=== PATIENT | female | born 1985 | race African-American/Black ===

== ENCOUNTER → 2017-02-10 | Outpatient (REF) | payer OTHER ==
[~2017-02-10] MED LIST: ACET25TA PO; AMIT50TA PO; AMIT75TA PO; DEPA250T2 PO; DIAM500C PO; DIVA250T PO; HYDR1CAP25 PO; HYDR50CA2 PO; METO-207 PO; NEXI20GR PO; OMEP20CA3 PO; PANT20TA PO; PROP10TA56 PO; TYLE325T5 PO
== END ==
LOC: M SFHCLERA 10:29
PROVIDERS: ATTEND Nurse Practitioner Family
DX: R30.0 Dysuria (principal)

== ENCOUNTER 2017-02-17 09:39 | Emergency (ER) | payer OTHER ==
[~2017-02-17] VITALS: Ht 162.6 cm; Wt 76.7 kg
[2017-02-17] MEDS ORDERED: diphenhydrAMINE INJ 50MG/ML VIAL (J1200) IV STA (11:04)
[2017-02-17] MEDS ORDERED: NS 1,000 ML IV ONE (11:15)
[2017-02-17] MEDS ORDERED: methylPREDNISolone INJ 125 MG/2 ML VIAL (J2930) IV ONE (11:15)
[2017-02-17] MEDS ORDERED: METOCLOPRAMIDE INJ 10MG/2ML VIAL (J2765) IV ONE (11:15)
[2017-02-17 13:25] LABS: ERYTHROCYTE SEDIMENTATION RATE 16 mm/hr (0-20)
[2017-02-17 13:28] LABS: BASO % 0.2 % (0.0-1.0); EOS # 0.1 K/mm3 (0.0-0.50); EOS % 3.1 % (0.0-3.0); LARGE UNSTAINED CELL # 0.1 K/mm3 (0.0-0.4); LARGE UNSTAINED CELL % 2.5 % (0.0-4.0); LYMPH # 0.8 K/mm3 (1.5-4.5); LYMPH % 31.3 % (24.0-44.0); MEAN CORPUSCULAR HEMOGLOBIN 28.2 pg (27.0-33.0); MEAN CORPUSCULAR HGB CONC 33.5 g/dl (32.0-36.5); MEAN CORPUSCULAR VOLUME 84.3 fl (80.0-96.0); MONO # 0.1 K/mm3 (0.0-0.8); MONO % 4.7 % (0.0-5.0); NEUTROPHILS # 1.5 K/mm3 (1.8-7.7); NEUTROPHILS % 58.3 % (36.0-66.0); PLATELET COUNT, AUTOMATED 264 k/mm3 (150-450); RED CELL DISTRIBUTION WIDTH 13.1 % (11.5-14.5); WHITE BLOOD COUNT 2.6 K/mm3 (4.0-10.0)
[2017-02-17] MEDS ORDERED: KETOROLAC 30 MG/ML VIAL (J1885) IV ONE (13:45)
[2017-02-17 14:46] VITALS: BP 128/84
== END 2017-02-17 15:18 | disposition home or self-care (01) ==
LOC: M ED 10:36
DX: G43.909 Migraine, unspecified, not intractable, without status migrainosus (principal); K21.9 Gastro-esophageal reflux disease without esophagitis; F17.200 Nicotine dependence, unspecified, uncomplicated; Z91.013 Allergy to seafood; Z88.6 Allergy status to analgesic agent; Z79.899 Other long term (current) drug therapy
CPT/HCPCS: 36415; 81025; 85025; 85652; 96374; 96375; 99283; J1200; J1885; J2765; J2930

== ENCOUNTER 2017-02-23 12:00 | Emergency (ER) | payer OTHER ==
[~2017-02-23] VITALS: Ht 162.6 cm; Wt 76.7 kg
[2017-02-23] MEDS ORDERED: BACL-67 PO (12:08)
[2017-02-23] MEDS ORDERED: diphenhydrAMINE INJ 50MG/ML VIAL (J1200) IV STA (12:56)
[2017-02-23] MEDS ORDERED: NS 1,000 ML IV ONE (13:00)
[2017-02-23] MEDS ORDERED: METOCLOPRAMIDE INJ 10MG/2ML VIAL (J2765) IV ONE (13:00)
[2017-02-23] MEDS ORDERED: MORPHINE 2 MG/ML 1ML SYRINGE IV ONE (13:00)
[2017-02-23] MEDS ORDERED: MORPHINE 4 MG/ML 1ML SYRINGE IV ONE (14:45)
[2017-02-23 15:31] VITALS: BP 112/67
== END 2017-02-23 15:44 | disposition home or self-care (01) ==
LOC: M ED 12:59
DX: R51 Headache (principal); Z88.6 Allergy status to analgesic agent; Z91.013 Allergy to seafood; Z79.899 Other long term (current) drug therapy
CPT/HCPCS: 96361; 96374; 96375; 96376; 99282; J1200; J2765

== ENCOUNTER 2017-03-05 13:36 | Emergency (ER) | payer OTHER ==
[~2017-03-05] VITALS: Ht 162.6 cm; Wt 78.5 kg
[~2017-03-05 13:36] MED LIST changes: +BACL-67 PO
[2017-03-05] MEDS ORDERED: ONDANSETRON 4 MG ORAL DISINTEGRATING TAB (S0181) PO ONE (15:15)
[2017-03-05] MEDS ORDERED: ACETAMINOPHEN 325 MG TAB PO ONE (15:15)
[2017-03-05] MEDS ORDERED: TESS100C PO (16:42)
[2017-03-05] MEDS ORDERED: ZOFR4TAB3 PO (16:42)
[2017-03-05] MEDS ORDERED: FLON1SPR (16:42)
[2017-03-05 16:55] VITALS: BP 115/71
== END 2017-03-05 16:57 | disposition home or self-care (01) ==
LOC: M ED 16:03
DX: J06.9 Acute upper respiratory infection, unspecified (principal); Z79.899 Other long term (current) drug therapy; Z88.8 Allergy status to other drugs, medicaments and biological substances; Z91.013 Allergy to seafood

== ENCOUNTER 2017-03-14 09:33 | Emergency (ER) | payer OTHER ==
[~2017-03-14] VITALS: Ht 162.6 cm; Wt 78.0 kg
[~2017-03-14 09:33] MED LIST changes: +FLON1SPR; +TESS100C PO; +ZOFR4TAB3 PO
[2017-03-14] MEDS ORDERED: NEXI40CA PO (09:47)
[2017-03-14] MEDS ORDERED: NS 1,000 ML IV ONE (10:15)
[2017-03-14] MEDS ORDERED: KETOROLAC 30 MG/ML VIAL (J1885) IV ONE (10:15)
[2017-03-14] MEDS ORDERED: METOCLOPRAMIDE INJ 10MG/2ML VIAL (J2765) IV ONE (10:15)
[2017-03-14 12:16] VITALS: BP 96/60
--- NOTE | 2017-03-14 20:32 | ECGEPIP ---
Stationary ECG Study [facility] - ED Test Date: 2017-03-14 Pat Name: YUVAL ARGUELLES Department: Room: - Gender: F [employer]: [facility] : 1985 Requested By: Irene Morales Order Number: [id number] Reading MD: Irene Morales Measurements Intervals [place] Rate: 129 P: 58 AL: 161 QRS: 59 QRSD: 85 T: 48 QT: 285 QTc: 418 Interpretive Statements SINUS TACHYCARDIA ABNORMAL RHYTHM ECG DECREASED RATE 11/07/14 Electronically Signed On 03-14-2017 20:31:39 EDT by Irene Morales
== END 2017-03-14 12:18 | disposition home or self-care (01) ==
LOC: M ED 10:14
DX: G43.909 Migraine, unspecified, not intractable, without status migrainosus (principal); R00.0 Tachycardia, unspecified; Z88.8 Allergy status to other drugs, medicaments and biological substances; Z91.013 Allergy to seafood; Z79.899 Other long term (current) drug therapy
CPT/HCPCS: 93005; 96361; 96374; 96375; 99283; J1885; J2765

== ENCOUNTER → 2017-04-16 | Outpatient (REF) | payer OTHER ==
[~2017-04-16] MED LIST changes: +NEXI40CA PO
[2017-04-16 13:01] LABS: FOLLICLE STIMULATING HORMONE 3.8 mIU/mL
== END ==
LOC: M LAB REF 12:24
PROVIDERS: ATTEND Internal Medicine Medical Oncology
DX: C85.90 Non-Hodgkin lymphoma, unspecified, unspecified site (principal)

== ENCOUNTER → 2017-04-24 | Outpatient (REF) | payer OTHER ==
[2017-04-24 14:45] LABS: BACTERIA, URINE SMALL AMOUNT; HYALINE CAST, URINE NONE SEEN /lpf (0-1); MICROSCOPIC EXAM PERFORMED; RBC, URINE 0-1 /hpf (0-3); SQUAMOUS EPITHELIAL CELL URINE MOD AMOUNT /hpf (SMALL AMT)
[2017-04-26 08:06] LABS: Candida species Negative (Negative); Gardnerella vaginalis Negative (Negative); Trichamonas vaginalis Negative (Negative)
== END ==
LOC: M SMT 13:01
PROVIDERS: ATTEND Specialist
DX: N39.0 Urinary tract infection, site not specified (principal); N89.8 Other specified noninflammatory disorders of vagina

== ENCOUNTER 2017-06-01 11:50 | Emergency (ER) | payer OTHER ==
[~2017-06-01] VITALS: Ht 162.6 cm; Wt 76.1 kg
[~2017-06-01 11:50] MED LIST changes: +ACET250T2 PO; -ACET25TA PO; -BACL-67 PO; +BACL1TAB9 PO; -METO-207 PO; +METO1TAB7 PO
[2017-06-01] MEDS ORDERED: OMEP40CA2 PO (11:58)
[2017-06-01] MEDS ORDERED: diphenhydrAMINE INJ 50MG/ML VIAL (J1200) IV STA (13:01)
[2017-06-01] MEDS ORDERED: KETOROLAC 30 MG/ML VIAL (J1885) IV ONE (13:15)
[2017-06-01] MEDS ORDERED: NS 1,000 ML IV ONE (13:15)
[2017-06-01] MEDS ORDERED: METOCLOPRAMIDE INJ 10MG/2ML VIAL (J2765) IV ONE (13:15)
[2017-06-01] MEDS ORDERED: methylPREDNISolone INJ 125 MG/2 ML VIAL (J2930) IV ONE (14:30)
[2017-06-01] MEDS ORDERED: MAG SULF 1GM/100ML (MAG RUN) 1 GM in APPROPRIATE DILUENT 1 EA IV ONE (14:30)
[2017-06-01] MEDS: MAG SULF 1GM/100ML (MAG RUN) 1 GM in APPROPRIATE DILUENT 1 EA IV SCH ×2 (14:44→15:45)
[2017-06-01 17:00] VITALS: BP 106/64
== END 2017-06-01 17:01 | disposition home or self-care (01) ==
LOC: M ED 11:50
DX: R51 Headache (principal); G93.2 Benign intracranial hypertension; I11.0 Hypertensive heart disease with heart failure; I50.9 Heart failure, unspecified; F41.9 Anxiety disorder, unspecified; C81.90 Hodgkin lymphoma, unspecified, unspecified site; Z87.891 Personal history of nicotine dependence; Z79.899 Other long term (current) drug therapy; Z88.8 Allergy status to other drugs, medicaments and biological substances; Z91.013 Allergy to seafood
CPT/HCPCS: 96374; 96375; 96376; 99283; J1200; J1885; J2765; J2930; J3475

== ENCOUNTER → 2018-03-11 | Outpatient (REF) | payer OTHER ==
[2018-03-11 19:33] LABS: CHLAMYDIA DNA AMPLIFICATION NEGATIVE (NEGATIVE); GC DNA AMPLIFICATION NEGATIVE (NEGATIVE)
== END ==
LOC: M SFHCLERA 12:01
DX: N89.8 Other specified noninflammatory disorders of vagina (principal)
CPT/HCPCS: 87086

== ENCOUNTER → 2018-06-22 | Outpatient (REF) | payer OTHER ==
[2018-06-22 19:59] LABS: APPEARANCE, URINE CLEAR (CLEAR); BACTERIA, URINE AUTO NEGATIVE (NEGATIVE); BILIRUBIN, URINE AUTO NEGATIVE (NEGATIVE); BLOOD, URINE BLOOD NEGATIVE (NEGATIVE); COLOR, URINE YELLOW (YELLOW); GLUCOSE, URINE (UA) AUTO NEGATIVE (NEGATIVE); KETONE, URINE AUTO NEGATIVE (NEGATIVE); LEUKOCYTE ESTERASE, URINE AUTO NEGATIVE (NEGATIVE); MUCUS, URINE SMALL (NEGATIVE); NITRITE, URINE AUTO NEGATIVE (NEGATIVE); PROTEIN, URINE AUTO NEGATIVE (NEGATIVE); RBC, URINE AUTO 0 /HPF (0-3); SPECIFIC GRAVITY URINE AUTO 1.017 (1.002-1.035); SQUAMOUS EPITHELIAL CELL UR AU 0 /HPF (0-6); UROBILINOGEN, URINE AUTO 0.2 mg/dL (0.0-2.0); WBC, URINE AUTO 1 /HPF (0-3)
== END ==
LOC: M SMT 17:06
DX: N39.0 Urinary tract infection, site not specified (principal)

== ENCOUNTER → 2018-07-14 | Outpatient (CLI) | payer OTHER | LOC: M RAD 12:18 | DX: N39.0 Urinary tract infection, site not specified (principal) | CPT/HCPCS: 74176 ==

== ENCOUNTER → 2019-10-30 | Outpatient (REF) | payer OTHER ==
[~2019-10-30] MED LIST changes: +AMIT100TA PO; -DIVA250T PO; +DIVA250T67 PO; +GABA-845 PO; +HYDR-3363 PO; +METH1TAB40 PO; +MUCI600T37 PO; -OMEP20CA3 PO; +OMEP20CA4 PO; +OMEP40CA97 PO; -PANT20TA PO; +PANT20TA2 PO; +ROBA500T PO; +ZOFR4TAB14 PO; -ZOFR4TAB3 PO
== END ==
LOC: M SFHCLERA 15:29
PROVIDERS: ATTEND Physician Assistant
DX: R50.9 Fever, unspecified (principal)